=== PATIENT | female | born 1990 | race Caucasian/White ===

== ENCOUNTER 2024-04-10 06:55 | Inpatient (IN) | payer OTHER ==
[2024-04-10] MEDS ORDERED: WITCH HAZEL 50% (TUCKS) 40 PAD/JAR PAD TP PRN ×2 (08:08→13:28)
[2024-04-10] MEDS ORDERED: IBUPROFEN 600 MG TABLET (FP) PO PRN ×2 (08:08→13:28)
[2024-04-10] MEDS ORDERED: oxyCODONE HCL 5 MG TABLET PO PRN (08:08)
[2024-04-10] MEDS ORDERED: BENZOCAINE 28 GM HEMORRHOIDAL OINTMENT TP PRN ×2 (08:08→13:28)
[2024-04-10] MEDS ORDERED: BISACODYL 10 MG SUPP.RECT RC PRN ×2 (08:08→13:28)
[2024-04-10] MEDS ORDERED: BENZOCAINE 20% 57 GM BOTTLE TP PRN ×2 (08:08→13:28)
[2024-04-10] MEDS ORDERED: ACETAMINOPHEN 325 MG TABLET (FP) PO PRN ×2 (08:08→13:28)
[2024-04-10] MEDS ORDERED: METHYLERGONOVINE MALEATE 0.2 MG/1 ML AMP IM PRN ×2 (08:10→13:28)
[2024-04-10 08:30] LABS: HEMATOCRIT 34.5 % (32.4-45.2); HEMOGLOBIN 11.3 GM/dL (10.7-15.3); MCHC 32.8 g/dl (32.0-36.0); MEAN CELL VOLUME 91.5 fl (80-96); MEAN PLT VOLUME 8.5 fl (7.5-11.1); PLATELET COUNT 324 10^3/uL (134-434); RBC 3.77 M/mm3 (3.60-5.2); RDW 14.2 % (11.6-15.6); WHITE BLOOD COUNT 23.4 K/mm3 (4.0-10.0)
[2024-04-10 08:44] LABS: INR 0.96 (0.83-1.09); PROTHROMBIN TIME (PATIENT) 10.9 SEC (9.7-13.0)
[2024-04-10 08:47] LABS: ACTIVATED PTT 24.2 SECONDS (25.2-36.5)
[2024-04-10 08:49] LABS: POTASSIUM 3.9 mmol/L (3.5-5.1)
[2024-04-10 08:51] LABS: BLOOD UREA NITROGEN 10.4 mg/dL (7-18)
[2024-04-10 08:54] LABS: CREATININE 0.6 mg/dL (0.55-1.3)
[2024-04-10 09:22] VITALS: BMI 30.6
[2024-04-10 10:10] LABS: ANISOCYTOSIS 0; HELMET CELLS 0; HOWELL-JOLLY BODIES 0; MACROCYTOSIS 0; OVALOCYTE 0; ROULEAU 0; SICKELED CELLS 0; TARGET CELLS 0; TEAR DROP CELLS 0; TOXIC GRANULATION 0
[2024-04-10 10:51] LABS: EPI CELLS 17 /uL (0-25.1); HYALINE CASTS 10 /uL (0-3.1); URINE APPEARANCE TURBID; URINE BACTERIA 9 /uL (0-1359); URINE BILIRUBIN 1+ (NEGATIVE); URINE COLOR RED; URINE GLUCOSE (UA) NEGATIVE (NEGATIVE); URINE KETONE 3+ (NEGATIVE); URINE LEUK ESTERASE 1+ (NEGATIVE); URINE NITRITE NEGATIVE (NEGATIVE); URINE PROTEIN 2+ (NEGATIVE); URINE RBC 27721 /uL (0-23.9); URINE UROBILINOGEN 0.2 mg/dL (0.2-1.0); URINE WBC 199 /uL (0-25.8)
[2024-04-10 10:54] LABS: COCAINE, UR NEGATIVE (NEGATIVE); METHADONE, UR NEGATIVE (NEGATIVE); URINE BARBITURATES NEGATIVE (NEGATIVE)
[2024-04-10 10:55] LABS: OPIATES, URI NEGATIVE (NEGATIVE); PHENCYCLIDINE,URINE NEGATIVE (NEGATIVE); URINE AMPHETAMINES NEGATIVE (NEGATIVE); URINE BENZODIAZEPINES NEGATIVE (NEGATIVE)
[2024-04-10 11:02] LABS: HEPATITIS B SURFACE AG MATERN NON-REACTIVE (NONREACTIVE)
[2024-04-10 11:30] LABS: HIV INTERPRETATION NEGATIVE (NEGATIVE)
[2024-04-10] MEDS ORDERED: OXYTOCIN 20 UNITS in 0.9% NS 20 UNIT/1,000 ML INFUS.BAG IV SCH (13:30)
[2024-04-11 07:53] LABS: BASO % 0.4 % (0-2.0); HEMATOCRIT 31.6 % (32.4-45.2); HEMOGLOBIN 10.7 GM/dL (10.7-15.3); LYMPH % 17.7 % (8-40); MCH 31.2 pg (25.7-33.7); MCHC 33.8 g/dl (32.0-36.0); MEAN CELL VOLUME 92.4 fl (80-96); MEAN PLT VOLUME 8.6 fl (7.5-11.1); MONO % 10.6 % (3.8-10.2); NEUT % 70.3 % (42.8-82.8); PLATELET COUNT 253 10^3/uL (134-434); RBC 3.42 M/mm3 (3.60-5.2); RDW 14.4 % (11.6-15.6); WHITE BLOOD COUNT 15.8 K/mm3 (4.0-10.0)
[2024-04-11] MEDS ORDERED: SENNOSIDES/DOCUSATE COMBO (SENNA PLUS) TABLET (UD) PO PRN ×2 (22:00)
[2024-04-12 09:18] VITALS: BP 123/82; PULSE 90; RESP 14; TEMP 97.8
== END 2024-04-12 11:15 | disposition home or self-care (01) | DRG 807 ==
LOC: JLDR 06:55 → J3W 13:16
PROVIDERS: ADMIT Obstetrics & Gynecology; ATTEND Obstetrics & Gynecology Obstetrics
PROC: 10E0XZZ Delivery of Products of Conception, External Approach (ICD-10-PCS; principal; 2024-04-10)
DX: O48.0 Post-term pregnancy (principal); Z37.0 Single live birth; Z3A.40 40 weeks gestation of pregnancy
CPT/HCPCS: 36415; 59409; 80048; 80307; 81003; 85025; 85610; 85730; 86780; 86803; 86850; 86900; 86901; 87340; 87389